=== PATIENT | male | born 1960 | race Caucasian/White ===

== ENCOUNTER 2020-10-21 11:08 | Emergency (ER) | payer OTHER, SELFPAY ==
--- NOTE | 2020-10-21 | ECG_ITS ---
Test Reason : medical clearance Blood Pressure : / mmHG Vent. Rate : 056 BPM Atrial Rate : 056 BPM P-R Int : 162 ms QRS Dur : 090 ms QT Int : 478 ms P-R-T Axes : 052 032 011 degrees QTc Int : 461 ms Sinus bradycardia Anteroseptal infarct , age undetermined Hyperacute appearing anerolateral T waves- correlate with clinical story and repeat ECG to check for evolution. Abnormal ECG No previous ECGs available Referred By: Tanya Garcias Electronically Signed By:Marek Nelson
[2020-10-21 11:16] VITALS: BP 194/114; PULSE 94; RESP 17; TEMP 37.2; O2SAT 96; BMI 21.5
--- NOTE | 2020-10-21 11:23 | ED.SKABFB ---
HPI - Skin/Abscess/Foreign Bdy General Chief complaint: Skin/Abscess/Foreign Body Stated complaint: face rash Time Seen by Provider: 10/21/20 11:19 Source: patient Mode of arrival: ambulatory Limitations: no limitations History of Present Illness HPI narrative: 60 y/o male with history of remote ETOH and substance abuse, hx acute paranoia and delusions presenting with recurrent reports of bugs and mites on his face and head. He was seen here in June for similar complaints. Full medical workup ensued and he ended up having a psychiatric admission for 7 days. He reports since then he has had continued nits in his home and on his body. He was seen by Dermatology and told that he may have a reaction to pollen, He recently started using OTC Lice Shampoo 3 days ago after he found small white nits in his hair. He reports today that he has a new red, burning rash on his face. He previously was taking bleach baths and taking parasitic medication for horses, however he currently denies all of those extreme measures. He states he has been washing his linen in hot water with bleach every day. He denies recent alcohol and drug use. MD complaint: rash Onset (ago): month(s) Tetanus up to date: unsure Location: head and face Severity: similar to previous episodes Quality: burning Pain Consistency: constant Relieving factors: none Exacerbating factors: palpation Context: new medication Associated symptoms: denies other symptoms Treatments prior to arrival: none Related Data Allergies Allergy/AdvReac Type Severity Reaction Status Date / Time No Known Allergies Allergy Verified 10/14/20 12:03 [No Known Allergies*] Review of Systems Review of Systems: Constitutional: No Fever, No Chills ENT/Mouth: No sore throat, No Rhinorrhea, No Swallowing Difficulty Eyes: No Eye Pain, No Swelling, No Redness Cardiovascular: No Chest Pain, No SOB Respiratory: No Cough, No Sputum, No Wheezing Gastrointestinal: No Nausea, No Vomiting, No Diarrhea, No abdominal Pain Musculoskeletal: No joint pain, No Myalgias Skin: + Skin Lesions, + rash Neuro: No Weakness, No Numbness, No Dizziness, No Headache Psych: + Anxiety/Panic, No Depression Heme/Lymph: No Bruising, No Lymphadenopathy PMFSH Past Medical History Attestation statement: The following information was validated with the patient. Medical History High blood pressure Surgical History (Updated 10/14/20 @ 12:03 by LEWIS Escalona) No pertinent past surgical history Family History Family History (Updated 10/14/20 @ 12:04 by LEWIS Escalona) Father No problems noted. Mother Breast cancer Social History Social History Advance Directives: No Advance Directives Information Provided: No Physical Exam Vital Signs: Vital Signs: Last Vital Signs Temp 98.4 F 10/21/20 14:36 Pulse 72 10/21/20 14:36 Resp 16 10/21/20 14:36 BP 162/85 H 10/21/20 14:36 Pulse Ox 99 10/21/20 14:36 Body Mass Index 21.5 Appearance: Alert. Oriented X3. Anxious, pacing. Head: atraumatic, facial erythema on cheeks and chin, shiny substance on his face. No bugs or mites visualized on detailed scalp exam. Eyes: Pupils equal, round and reactive to light. ENT: Pharynx normal. Neck: Normal inspection. Neck supple. CVS: Normal heart rate and rhythm. Pulses normal. Respiratory: No respiratory distress. Breath sounds normal. Abdomen: Soft and nontender. +BS x4 Skin: Skin warm and dry. Normal skin color. Normal skin turgor. No rashes. Extremities: No lower extremity edema. Psych: delusional, paranoid, poor insight, flight of ideas, anxious. no SI or HI. Course Course Course Narrative: 60 y/o male with history of delusions, paranoia (delusional parasitosis) presenting with persistent complaints of bugs on his skin and now a new burning rash on his face. Spoke with patient's daughter at length (Barbara [phone]) who reports patient continues to take deworming medication, take bleach baths and has been using Lice Shampoo all over his body several times per day. He also has been applying Vicks Vaporub to his face and Bacitracin because he thinks it will kill the bugs. She states he was hospitalized at [facility] for [facility] days - she states he was manipulative enough to stop talking about the bugs and be discharged. As soon as she picked him up he states how he needed to go home and shower to get rid of all the bugs all over his body. She attempted contacting [facility] to assess his living conditions and safety at home but was unable to arrrange. She states with all of the medications and chemicals he is taking he often vomits several times per day and she is concerned about malnutrution and failure to thrive. Lab workup is unremarkable. Utox negative. Will have CARE team assess him. Daughter is hoping he can be sectioned. Reevaluation(s) Reevaluation #1: CARE team evaluated the patient - section [address] Ward. Patient transferred to the pod with security. Reevaluation #2: Patient to be admitted to . MDM - Skin/Abscess/Foreign Bdy Lab Data Result diagrams: 10/21/20 11:48 10/21/20 11:48 Labs: Lab Results 10/21/20 10/21/20 10/21/20 Range/Units 11:48 11:48 11:48 WBC 8.9 (4.8-10.8) X10*3/uL RBC 4.11 L (4.60-5.80) X10*6/uL Hgb 12.8 L (14.0-18.0) g/dl Hct 36.6 L (42-52) % MCV 89.1 (80-98) fL MCH 31.1 (27.0-33.0) pg MCHC 35.0 (31.0-36.0) g/dl RDW 11.9 (11.0-16.0) % Plt Count 219 (160-400) X10*3/uL MPV 9.7 (9.4-12.4) fL Immature Gran % (Auto) 0.2 (0.0-0.4) % Neut % (Auto) 62.5 (45-73) % Lymph % (Auto) 24.5 (20-40) % [place] % (Auto) 9.6 (2-11) % Eos % (Auto) 2.8 (0-4) % Baso % (Auto) 0.4 (0-2) % Lymph # (Auto) 2.2 (1.2-4.9) X10*3/uL [place] # (Auto) 0.9 (0.1-1.2) X10*3/uL Eos # (Auto) 0.3 (0.0-0.4) X10*3/uL Baso # (Auto) 0.0 (0.0-0.2) X10*3/uL Abs Immat Gran (auto) 0.02 (0.00-0.03) X10*3/uL Absolute Neuts (auto) 5.6 (2.0-8.3) X10*3/uL Absolute Nucleated RBC 0.000 (0.0-0.012) X10*3/uL Nucleated RBC % (auto) 0.0 (0.0-0.2) /100WBC Sodium 137 (135-145) mmol/L Potassium 4.1 (3.3-5.1) mmol/l Chloride 98 (96-108) mmol/L Carbon Dioxide 29 (22-29) mmol/L Anion Gap 14 (12-20) BUN 7 L (9-16) mg/dL Creatinine 0.74 (0.5-1.4) mg/dL Estim Creat Clear Calc 102.1 Estimated GFR > 60 Random Glucose 97 (60-115) mg/dL Calcium 9.4 (8.4-10.2) mg/dL Total Bilirubin 0.4 (0.0-1.0) mg/dL Direct Bilirubin 0.2 (0.0-0.5) mg/dL AST 22 (5-37) U/L ALT 18 (0-40) U/L Alkaline Phosphatase 107 (39-117) U/L Total Protein 7.0 (6.5-8.0) g/dL Albumin 4.4 (3.5-5.0) g/dL Urine Opiates Screen (Not Detect) Ur Barbiturates Screen (Not Detect) Ur Phencyclidine Scrn (Not Detect) Ur Amphetamines Screen (Not Detect) U Benzodiazepines Scrn (Not Detect) Urine Cocaine Screen (Not Detect) U Marijuana (THC) Screen (Not Detect) Ethyl Alcohol < 10 mg/dL 10/21/20 Range/Units 12:05 WBC (4.8-10.8) X10*3/uL RBC (4.60-5.80) X10*6/uL Hgb (14.0-18.0) g/dl Hct (42-52) % MCV (80-98) fL MCH (27.0-33.0) pg MCHC (31.0-36.0) g/dl RDW (11.0-16.0) % Plt Count (160-400) X10*3/uL MPV (9.4-12.4) fL Immature Gran % (Auto) (0.0-0.4) % Neut % (Auto) (45-73) % Lymph % (Auto) (20-40) % [place] % (Auto) (2-11) % Eos % (Auto) (0-4) % Baso % (Auto) (0-2) % Lymph # (Auto) (1.2-4.9) X10*3/uL [place] # (Auto) (0.1-1.2) X10*3/uL Eos # (Auto) (0.0-0.4) X10*3/uL Baso # (Auto) (0.0-0.2) X10*3/uL Abs Immat Gran (auto) (0.00-0.03) X10*3/uL Absolute Neuts (auto) (2.0-8.3) X10*3/uL Absolute Nucleated RBC (0.0-0.012) X10*3/uL Nucleated RBC % (auto) (0.0-0.2) /100WBC Sodium (135-145) mmol/L Potassium (3.3-5.1) mmol/l Chloride (96-108) mmol/L Carbon Dioxide (22-29) mmol/L Anion Gap (12-20) BUN (9-16) mg/dL Creatinine (0.5-1.4) mg/dL Estim Creat Clear Calc Estimated GFR Random Glucose (60-115) mg/dL Calcium (8.4-10.2) mg/dL Total Bilirubin (0.0-1.0) mg/dL Direct Bilirubin (0.0-0.5) mg/dL AST (5-37) U/L ALT (0-40) U/L Alkaline Phosphatase (39-117) U/L Total Protein (6.5-8.0) g/dL Albumin (3.5-5.0) g/dL Urine Opiates Screen Not Detected (Not Detect) Ur Barbiturates Screen Not Detected (Not Detect) Ur Phencyclidine Scrn Not Detected (Not Detect) Ur Amphetamines Screen Not Detected (Not Detect) U Benzodiazepines Scrn Not Detected (Not Detect) Urine Cocaine Screen Not Detected (Not Detect) U Marijuana (THC) Screen Not Detected (Not Detect) Ethyl Alcohol mg/dL Critical Care Time Critical Care Time Critical Care Time: No Discharge Plan Discharge Clinical Impression: Delusions of parasitosis Patient Disposition: Admitted As Inpatient
[2020-10-21] MEDS: hydrOXYzine HCL 25 MG TABLET PO (11:48)
[2020-10-21] MEDS: HaloperidoL 1 MG TABLET 2 MG PO (11:48)
[2020-10-21 11:56] LABS: Basophils Percent Auto 0.4 % (0-2); Eosinophils Absolute Auto 0.3 X10*3/uL (0.0-0.4); Eosinophils Percent Auto 2.8 % (0-4); Hematocrit 36.6 % (42-52); Hemoglobin 12.8 g/dl (14.0-18.0); Imm Gran Abs Auto 0.02 X10*3/uL (0.00-0.03); Imm Gran Pct Auto 0.2 % (0.0-0.4); Lymphocytes Absolute Auto 2.2 X10*3/uL (1.2-4.9); Lymphocytes Percent Auto 24.5 % (20-40); MANUAL DIFF FLAG NO; Mean Corpuscular Hemoglobin 31.1 pg (27.0-33.0); Mean Corpuscular Volume 89.1 fL (80-98); Mean Platelet Volume 9.7 fL (9.4-12.4); Monocytes Absolute Auto 0.9 X10*3/uL (0.1-1.2); Monocytes Percent Auto 9.6 % (2-11); Neutrophils Absolute Auto 5.6 X10*3/uL (2.0-8.3); Neutrophils Percent Auto 62.5 % (45-73); Platelet Count 219 X10*3/uL (160-400); Red Blood Count 4.11 X10*6/uL (4.60-5.80); Red Cell Distribution Width 11.9 % (11.0-16.0); White Blood Count 8.9 X10*3/uL (4.8-10.8)
[2020-10-21 12:30] LABS: Alanine Aminotransferase 18 U/L (0-40); Albumin Level 4.4 g/dL (3.5-5.0); Alkaline Phosphatase 107 U/L (39-117); Anion Gap 14 (12-20); Aspartate Amino Transferase 22 U/L (5-37); Bilirubin Direct 0.2 mg/dL (0.0-0.5); Bilirubin Total 0.4 mg/dL (0.0-1.0); Blood Urea Nitrogen 7 mg/dL (9-16); Calcium 9.4 mg/dL (8.4-10.2); Carbon Dioxide 29 mmol/L (22-29); Chloride 98 mmol/L (96-108); Creatinine Clr Calc Pharmacy 102.1; Estimated Glomerular Filt Rate > 60; Glucose Random 97 mg/dL (60-115); Potassium 4.1 mmol/l (3.3-5.1); Sodium 137 mmol/L (135-145)
[2020-10-21 12:37] LABS: Ethanol < 10 mg/dL
[2020-10-21 12:51] LABS: Amphetamine Screen Urine Not Detected (Not Detect); Barbiturates, Urine Not Detected (Not Detect); Benzodiazepines Screen Urine Not Detected (Not Detect); Cannabinoid Screen Urine Not Detected (Not Detect); Cocaine Screen Urine Not Detected (Not Detect); Opiate Screen Urine Not Detected (Not Detect); Phencyclidine Screen Urine Not Detected (Not Detect)
--- NOTE | 2020-10-21 13:14 | PC.NURSE ---
PT ANXIOUS, PACING BACK AND FORTH IN HALLWAY. PT COOPERATIVE AT THIS TIME. AWAITING CARE TEAM EVALUATION.
[2020-10-21 14:36] VITALS: BP 162/85; PULSE 72; RESP 16; TEMP 36.9; O2SAT 99
--- NOTE | 2020-10-21 14:37 | PC.NURSE ---
Report recieved. Pt ambulated to pod with steady gait, denies complaints at this time. Pt states he is here because he put too much vicks on his face, states that he saw knits in his hair and thought one was on his face so he put vicks on his face. Pt denies SI/HI. PT reports that he also has an opoid addiction, states he uses opiods to sleep, states they are not prescribed for him. Pt calm and cooperative, understands plan of care at this time.
[2020-10-21] MEDS: Ibuprofen 600 MG TABLET PO (15:28)
[2020-10-21] MEDS: Acetaminophen 325 MG TABLET 650 MG PO (16:40)
[2020-10-21 17:00] VITALS: BP 114/67; PULSE 60; RESP 18; TEMP 37; O2SAT 98
[2020-10-21 17:27] LABS: COVID-19 Test Positive (Negative)
--- NOTE | 2020-10-21 19:05 | PC.NURSE ---
Report received. PT is sleeping in his room. Breathing is even and unlabored. Inpatient bed search in progress.
[2020-10-21 21:09] VITALS: BP 135/87; PULSE 70; RESP 18; TEMP 37; O2SAT 99
--- NOTE | 2020-10-21 21:33 | MHC.CARE ---
CARE Team meets with patient in order to update pt on disposition. Plan is for pt to remain in the ED on a section 12 while CARE team conducts inpatient bedsearch. Due to positive covid-19 result, pt can only be referred to a limited number of units who accept covid positive patients. A state wide bedsearch was completed with the following results: [facility]- full [facility]- full [facility]- full [facility]- full [facility]- full for tonight, expecting discharges tomorrow, 10/22, CARE Team will call to follow up and send referral in the morning, per unit's request [facility]-full, no discharges expected tomorrow or over the weekend, call on Sunday [facility]- full on covid unit, call back tomorrow 10/22 [facility], reviewing for tomorrow. Evaluation was faxed, and a call was placed and confirmed with Hafsa. Evaluation will not be reviewed for admission until tomorrow. CARE Team will follow up in the morning. [facility]- covid unit closed, no sx 14 days after positive test to consider for admission. [facility]- full, not expecting discharges tomorrow or through the weekend. [facility]- no covid unit, not accepting covid patients [facility]- no covid unit, not accepting covid patients [facility]- no covid unit, not accepting covid patients [facility]- no covid unit, not accepting covid patients Pt identifies that he would like to be discharged home, however, is plesant when discussing plan to stay overnight for bedsearch. Plan if for CARE Team to meet with patient tomorrow morning for mental status update, and to see if this disposition continues to be appropriate.
--- NOTE | 2020-10-22 06:59 | PC.NURSE ---
Report received. PT currently sleeping, respirations even and unlabored, in no apparent distress. Pt is section 12 bedsearch.
[2020-10-22 09:01] VITALS: BP 136/91; PULSE 69; RESP 18; TEMP 36.6; O2SAT 99
--- NOTE | 2020-10-22 10:24 | MHC.CARE ---
CARE Team completed COVID bedsearch- no current availability. CARE Team to complete MSU due to exhausted bed search
== END 2020-10-22 11:04 | disposition home or self-care (01) ==
PROVIDERS: Physician Assistant; Emergency Provider Emergency Medicine Emergency Medical Services; PCP Internal Medicine
DX: F22 Delusional disorders (principal); U07.1 COVID-19; R21 Rash and other nonspecific skin eruption; Z79.899 Other long term (current) drug therapy
CPT/HCPCS: 36415; 80048; 80076; 80307; 80320; 85025; 87635; 93005; 99284

== ENCOUNTER 2020-12-07 14:07 | Emergency (ER) | payer OTHER, SELFPAY ==
[2020-12-07 14:34] VITALS: BP 132/86; PULSE 108; RESP 16; TEMP 36.7; O2SAT 93; BMI 26.6
[2020-12-07 14:38] VITALS: BP 132/86; PULSE 108; RESP 16; TEMP 36.7; O2SAT 93
[2020-12-07 15:36] LABS: MANUAL DIFF FLAG NO
[2020-12-07 15:37] LABS: Basophils Percent Auto 0.4 % (0-2); Eosinophils Absolute Auto 0.4 X10*3/uL (0.0-0.4); Eosinophils Percent Auto 4.3 % (0-4); Hematocrit 40.3 % (42-52); Hemoglobin 13.7 g/dl (14.0-18.0); Imm Gran Abs Auto 0.03 X10*3/uL (0.00-0.03); Imm Gran Pct Auto 0.3 % (0.0-0.4); Lymphocytes Absolute Auto 2.3 X10*3/uL (1.2-4.9); Lymphocytes Percent Auto 23.1 % (20-40); Mean Corpuscular Hemoglobin 30.5 pg (27.0-33.0); Mean Corpuscular Volume 89.8 fL (80-98); Mean Platelet Volume 9.4 fL (9.4-12.4); Monocytes Absolute Auto 0.5 X10*3/uL (0.1-1.2); Monocytes Percent Auto 5.1 % (2-11); Neutrophils Absolute Auto 6.7 X10*3/uL (2.0-8.3); Neutrophils Percent Auto 66.8 % (45-73); Platelet Count 309 X10*3/uL (160-400); Red Blood Count 4.49 X10*6/uL (4.60-5.80); Red Cell Distribution Width 11.8 % (11.0-16.0); White Blood Count 10.1 X10*3/uL (4.8-10.8)
[2020-12-07] MEDS: Loratadine 10 MG TABLET PO (15:49)
[2020-12-07] MEDS: diphenhydrAMINE HCL 25 MG TABLET PO (15:50)
--- NOTE | 2020-12-07 15:56 | ED.PSYCH ---
HPI - Psych General Chief Complaint: Psychiatric Symptoms Stated Complaint: RX TO CHEMICALS Time Seen by Provider: 12/07/20 14:36 Source: patient History of Present Illness HPI Narrative: 60-year-old male with a past medical history of ETOH and substance abuse, acute paranoia/delusions, presenting to the ED complaining of recurrent/persistent bug infestation in his apartment. States he finds white nits all over his hair/skin, and skin is pruritic. States constantly bathing himself/using permethrin cream without relief. States no one believes him, he has seen multiple specialists, but reports everybody thinks he is crazy. Denies using extreme measures/poisonous substances/chemicals on body. Admits to opiate use to deal with bug infestation discomfort. Denies other drugs, EtOH, SI/HI Related Data Previous Rx's Medication Instructions Recorded hydroxyzine HCl 25 mg PO TID PRN #20 tab 10/22/20 Allergies Allergy/AdvReac Type Severity Reaction Status Date / Time No Known Allergies Allergy Verified 10/14/20 12:03 [No Known Allergies*] Review of Systems Review of Systems: Constitutional: No Weight loss, No Fever, No Chills Cardiovascular: No Chest Pain, No SOB Respiratory: No Cough, No Dyspnea Gastrointestinal: No Nausea, No Vomiting, No Diarrhea, No Constipation, No Abdominal pain Genitourinary: No Dysuria, No Urinary Frequency, No Hematuria Musculoskeletal: No joint pain, No Myalgias, No Joint Swelling Skin: + Skin Lesions, + rash Psych: + Anxiety/Panic, No Depression, No SI/HI Yes all other systems are reviewed and are negative [facility] Past Medical History Attestation statement: The following information was validated with the patient. Medical History High blood pressure Surgical History (Updated 10/14/20 @ 12:03 by LEWIS Escalona) No pertinent past surgical history Family History Family History (Updated 10/14/20 @ 12:04 by LEWIS Escalona) Father No problems noted. Mother Breast cancer Social History Social History Alcohol intake: former Smoking Status: Former smoker Use of substances other than those prescribed or required for medical reasons: Yes Substance Use Type: Opiates Advance Directives: No Advance Directives Information Provided: Yes Physical Exam Vital Signs: Vital Signs: Last Vital Signs Temp 98.1 F 12/07/20 14:38 Pulse 108 H 12/07/20 14:38 Resp 16 12/07/20 14:38 BP 132/86 12/07/20 14:38 Pulse Ox 93 12/07/20 14:38 Body Mass Index 26.6 Const: Other: Anxious/paranoid Orientation/consciousness: patient oriented x3 Limitations: no limitations HENMT: Other: Face is diffusely erythematous with dry skin. Not warm to touch. Two small abrasions noted (likely from picking). No appreciable tunneling/fluctuance/induration. Head: Yes normal to inspection Ears: hearing grossly normal bilaterally General nose exam: Normal external nose present Eyes: General: appearance normal, both eyes and all related structures EOM: EOMs intact bilaterally Neck: Neck: Yes normal visual inspection and Yes no meningeal signs Resp: Effort & Inspection: normal respiratory effort Cardio: Rate: regular rate GI: Inspection: Yes normal to inspection Skin: Other: No visualized bugs/nits in scalp, on face or body. No appreciable rash. No palm/sole involvement Neuro: General: patient oriented x3 and no meningeal signs Gait exam (Neuro): Normal gait present Extrem: General: Yes normal to inspection Psych: Speech and movement: Pressured speech present Affect: Anxious affect present Attitude: Avoids eye contact (attititude/behavior) Thought content: suicidality, no homicidality and Obsession(s) present Insight: Poor insight present (Psych) Course Course Course Narrative: - labs unremarkable 1700-- ED care transferred to CONCHIS Martínez pending FLORES and crisis evaluation MDM - Psych MDM Narrative Medical decision making narrative: 60-year-old male with a past medical history of ETOH and substance abuse, acute paranoia/delusions, presenting to the ED complaining of recurrent/persistent bug infestation in his apartment. On exam VSS, NAD/anxious, pressured, physical exam as above. No appreciable rashes/bugs or nits. Patient with multiple previous ED visits for similar symptoms. Plan: Labs, FLORES, crisis evaluation Lab Data Result diagrams: 12/07/20 15:31 12/07/20 15:31 Labs: Lab Results 12/07/20 12/07/20 Range/Units 15:31 15:31 WBC 10.1 (4.8-10.8) X10*3/uL RBC 4.49 L (4.60-5.80) X10*6/uL Hgb 13.7 L (14.0-18.0) g/dl Hct 40.3 L (42-52) % MCV 89.8 (80-98) fL MCH 30.5 (27.0-33.0) pg MCHC 34.0 (31.0-36.0) g/dl RDW 11.8 (11.0-16.0) % Plt Count 309 D (160-400) X10*3/uL MPV 9.4 (9.4-12.4) fL Immature Gran % (Auto) 0.3 (0.0-0.4) % Neut % (Auto) 66.8 (45-73) % Lymph % (Auto) 23.1 (20-40) % [place] % (Auto) 5.1 (2-11) % Eos % (Auto) 4.3 H (0-4) % Baso % (Auto) 0.4 (0-2) % Lymph # (Auto) 2.3 (1.2-4.9) X10*3/uL [place] # (Auto) 0.5 (0.1-1.2) X10*3/uL Eos # (Auto) 0.4 (0.0-0.4) X10*3/uL Baso # (Auto) 0.0 (0.0-0.2) X10*3/uL Abs Immat Gran (auto) 0.03 (0.00-0.03) X10*3/uL Absolute Neuts (auto) 6.7 (2.0-8.3) X10*3/uL Absolute Nucleated RBC 0.000 (0.0-0.012) X10*3/uL Nucleated RBC % (auto) 0.0 (0.0-0.2) /100WBC Sodium 139 (135-145) mmol/L Potassium 4.0 (3.3-5.1) mmol/L Chloride 97 (96-108) mmol/L Carbon Dioxide 33 H (22-29) mmol/L Anion Gap 13 (12-20) BUN 12 D (9-16) mg/dL Creatinine 0.83 (0.5-1.4) mg/dL Estim Creat Clear Calc 91.5 Estimated GFR > 60 Random Glucose 115 (60-115) mg/dL Calcium 9.4 (8.4-10.2) mg/dL Magnesium 1.7 (1.6-2.6) mg/dL Total Bilirubin 0.3 (0.0-1.0) mg/dL Direct Bilirubin 0.2 (0.0-0.5) mg/dL AST 18 (5-37) U/L ALT 13 (0-40) U/L Alkaline Phosphatase 107 (39-117) U/L Total Protein 6.9 (6.5-8.0) g/dL Albumin 4.1 (3.5-5.0) g/dL Salicylates < 5.0 L (15-30) mg/dL Acetaminophen < 1 (<30) mcg/mL Discharge Plan Discharge Clinical Impression: Paranoia (psychosis) Prescriptions: No Action hydroxyzine HCl 25 mg tablet 25 mg PO TID PRN (Reason: itching) Qty: 20 RF: 0
[2020-12-07 16:06] LABS: Alanine Aminotransferase 13 U/L (0-40); Albumin Level 4.1 g/dL (3.5-5.0); Alkaline Phosphatase 107 U/L (39-117); Anion Gap 13 (12-20); Aspartate Amino Transferase 18 U/L (5-37); Bilirubin Direct 0.2 mg/dL (0.0-0.5); Bilirubin Total 0.3 mg/dL (0.0-1.0); Blood Urea Nitrogen 12 mg/dL (9-16); Calcium 9.4 mg/dL (8.4-10.2); Carbon Dioxide 33 mmol/L (22-29); Chloride 97 mmol/L (96-108); Creatinine Clr Calc Pharmacy 91.5; Estimated Glomerular Filt Rate > 60; Glucose Random 115 mg/dL (60-115); Magnesium 1.7 mg/dL (1.6-2.6); Salicylate < 5.0 mg/dL (15-30); Sodium 139 mmol/L (135-145); Total Protein 6.9 g/dL (6.5-8.0)
[2020-12-07 16:09] LABS: Acetaminophen LAB < 1 mcg/mL (<30)
[2020-12-07] MEDS: Artificial Tears 15 ML DROPS 2 DROP EYE-BOTH (16:22)
[2020-12-07 17:10] VITALS: BP 149/91; PULSE 65; RESP 16; TEMP 37.1; O2SAT 95
--- NOTE | 2020-12-07 17:21 | PC.NURSE ---
Pt't eyes are red with discharge noted, provider notified, medication ordered. Care team at bedside for eval.
--- NOTE | 2020-12-07 19:03 | PC.NURSE ---
Report received. PT is sitting in his room quietly. Inpatient bed search.
--- NOTE | 2020-12-07 19:33 | PC.NURSE ---
PT is distressed and complaining about an infestations of bugs in his skin. PT is insistent that he is not crazy and needs have the bugs collected and examined under a microscope . PT was picking at his skin and collecting the dried blood in an empty tissue box. This nurse informed the PT that he should stop picking at his skin and we would continue to monitor him for any infection or infestation.
--- NOTE | 2020-12-07 20:41 | PC.NURSE ---
PT refusing to have antibiotic eye drops administered because the liquid activates the bugs, causing more damage . Provider notified.
[2020-12-07 21:08] LABS: Glucose Urine UA NEG (NEG); Leukocyte Esterase Urine NEG (NEG); Nitrite Urine NEG (NEG); PH 6.5 (5.0-8.0); Urine Blood NEG (NEG); Urine Ketones NEG (NEG); Urine Protein NEG (NEG-TRACE)
--- NOTE | 2020-12-07 21:09 | MHC.CARE ---
CARE team evaluated pt with disposition for inpt psychiatric admission. Sect 12a has been signed and placed in pt's chart. Pt will remain in ED until bed placement is secured.
[2020-12-07 21:10] LABS: Appearance Urine HAZY; Color Urine YELLOW
[2020-12-07 21:35] LABS: Amphetamine Screen Urine Not Detected (Not Detect); Barbiturates, Urine Not Detected (Not Detect); Benzodiazepines Screen Urine Not Detected (Not Detect); Cannabinoid Screen Urine Not Detected (Not Detect); Cocaine Screen Urine Not Detected (Not Detect); Opiate Screen Urine POSITIVE (Not Detect); Phencyclidine Screen Urine Not Detected (Not Detect)
[2020-12-07] MEDS: Melatonin 3 MG TABLET 6 MG PO (23:00)
[2020-12-07] MEDS: diphenhydrAMINE HCL 25 MG TABLET 50 MG PO (23:01)
[2020-12-08 06:00] VITALS: RESP 18
--- NOTE | 2020-12-08 07:58 | PC.NURSE ---
PT SLEEPING. BED SEARCH CONTINUES.
[2020-12-08] MEDS: Loratadine 10 MG TABLET PO (08:44)
--- NOTE | 2020-12-08 09:39 | PC.NURSE ---
CILNTON,REDUCING SYSTEM OPERATOR IN TO SPEAK WITH PT
[2020-12-08 09:49] VITALS: BP 155/96; PULSE 70; O2SAT 99
[2020-12-08 11:43] LABS: Influenza A PCR NEGATIVE (Negative); Influenza B PCR NEGATIVE (Negative); Resp Syncy Virus RNA Qual PCR NEGATIVE (Negative); SARS COV2 PCR INHOUSE NEGATIVE (Negative)
--- NOTE | 2020-12-08 11:43 | PC.NURSE ---
PT ATTEMPTING TO WALK TO BR. LOWERED SELF TO KNEES. STATES HE IS UNABLE TO WALK DUE TO WHAT IS GOING ON WITH HIS BODY. ACTUALLY HAVING TO HOLD PT UP TO GET HIM BACK TO BED. STATES HE CAN'T WALK
--- NOTE | 2020-12-08 12:02 | PC.NURSE ---
PT SEEN RUNNING TO BR.
--- NOTE | 2020-12-08 12:37 | PC.NURSE ---
UP TO BR WITHOUT ASSIST. INSISTANT THAT HE HAS BUGS ON FACE/ARMS. REASSURED PT THAT NO BUGS ARE NOTED
--- NOTE | 2020-12-08 14:36 | PC.NURSE ---
PT FIXATED ON BUGS ON FACE/ARMS. NEEDS REASSURANCE CONSTANTLY.
--- NOTE | 2020-12-08 14:57 | PC.NURSE ---
Report received. Pt resting in bed at current, no signs of distress.
[2020-12-08] MEDS: LORazepam 1 MG TABLET 2 MG PO ×2 (15:03→23:10)
--- NOTE | 2020-12-08 16:51 | PC.NURSE ---
Pt asleep in bed at current. No signs of distress. Respirations even and unlabored.
[2020-12-08] MEDS: OLANZapine 5 MG TABLET PO (19:50)
--- NOTE | 2020-12-08 19:57 | PC.NURSE ---
Patient in bed, dishevelled, alert and oriented x 3, presents with delusional parasitosis, administered Olanzapine 5 mg as ordered/patient compliant, will continue to monitor.
[2020-12-08 22:00] VITALS: BP 153/92; PULSE 63; RESP 18; TEMP 37.1; O2SAT 99
[2020-12-08 23:07] VITALS: BP 164/86; PULSE 60; RESP 17; TEMP 36.8; O2SAT 100
[2020-12-08] MEDS: diphenhydrAMINE HCL 25 MG TABLET 50 MG PO (23:10)
[2020-12-09] MEDS: Ibuprofen 600 MG TABLET PO (01:54)
--- NOTE | 2020-12-09 01:57 | PC.NURSE ---
Patient just came out of room asking pain medication for lower back pain, Ibuprofen 600 mg administered as ordered, patient has balance deficit, risk for fall, patient advised to call for help before get out of his bed, patient agreed, will continue to monitor.
--- NOTE | 2020-12-09 07:14 | PC.NURSE ---
PT SLEEPING. INPT BEDSEARCH CONTINUES. BKFST TRAY PROVIDED
[2020-12-09] MEDS: Loratadine 10 MG TABLET PO (08:40)
[2020-12-09 08:56] VITALS: BP 149/83; PULSE 63; TEMP 36.9; O2SAT 100
--- NOTE | 2020-12-09 12:40 | PC.NURSE ---
LUNCH TRAY GIVEN TO PT. PROBABLE ADMIT TO M5 LATER TODAY. PT AWARE
--- NOTE | 2020-12-09 12:50 | MHC.CARE ---
At this time does not have an available bed for this patient. [facility]--full Wing--no male beds [facility]--no male beds [facility]--closed for illness Gretta Mabry is reviewing his information.
--- NOTE | 2020-12-09 13:08 | PC.NURSE ---
NURSE TO NURSE CALLED TO SUNIL ROJAS AT [facility]. PT TO BE SENT FOR 6PM
--- NOTE | 2020-12-09 15:11 | PC.NURSE ---
PT AWARE THAT HE'S BEING TX'D TO [facility]
[2020-12-09 16:16] VITALS: BP 159/90; PULSE 60; RESP 20; TEMP 37.1; O2SAT 100
[2020-12-09] MEDS: LORazepam 1 MG TABLET PO (16:18)
== END 2020-12-09 18:48 ==
PROVIDERS: Physician Assistant; Emergency Provider Internal Medicine
DX: F11.150 Opioid abuse with opioid-induced psychotic disorder with delusions (principal); I10 Essential (primary) hypertension; Z20.822 Contact with and (suspected) exposure to COVID-19
CPT/HCPCS: 0241U; 36415; 80048; 80076; 80307; 81003; 83735; 85025; 99285; G0480; Q0163